=== PATIENT | male | born 2000 | race African-American/Black ===

== ENCOUNTER 2022-08-31 11:33 | Emergency (ER) | payer OTHER ==
[~2022-08-31] VITALS: Ht 182.9 cm; Wt 85.0 kg
[2022-08-31 11:35] VITALS: BP 132/63
[2022-08-31] MEDS ORDERED: [UNRECOGNIZED DRUG - REMARK] PO (11:45)
== END 2022-08-31 12:36 | disposition home or self-care (01) ==
LOC: EMS 11:36
DX: Z13.9 Encounter for screening, unspecified (principal)
CPT/HCPCS: 99281; Z7502